=== PATIENT | female | born 1995 | race American Indian/Alaskan Native ===

== ENCOUNTER 2017-07-03 00:01 | Emergency (ER) | payer BC, OTHER ==
[2017-07-03 00:48] VITALS: BMI 25.7
[2017-07-03] MEDS ORDERED: Sodium Chloride 0.9% 1,000 ML IV STA (00:55)
--- NOTE | 2017-07-03 00:59 | ED PDOC ---
Arrival/HPI - General Historian: Patient <Hector Pagan - Last Filed: 07/03/17 04:03> <Jose Armando Mosher - Last Filed: 07/03/17 06:01> - General Chief Complaint: Abdominal Pain Time Seen by Provider: 07/03/17 00:53 - History of Present Illness Narrative History of Present Illness (Text): 07/03/17 00:56 22 y/o female, pmh including colitis, c/o upper abdominal pain with nausea/ vomiting/diarrhea x 2 days. Pt. stated that she has sharp abdominal pain, associated with nausea/vomiting and 3-4 episodes of watery diarrhea, no fever or chills, no rash, no urinary symptoms, no other medical or psychological complaints. (Hector Pagan) Past Medical History - Provider Review Nursing Documentation Reviewed: Yes - Infectious Disease Hx of Infectious Diseases: None - Cardiac Hx Cardiac Disorders: No - Pulmonary Hx Respiratory Disorders: No - Neurological Hx Neurological Disorder: No - HEENT Hx HEENT Disorder: No - Renal Hx Renal Disorder: No - Endocrine/Metabolic Hx Endocrine Disorders: No - Hematological/Oncological Hx Blood Disorders: No - Integumentary Hx Dermatological Disorder: No - Musculoskeletal/Rheumatological Hx Musculoskeletal Disorders: No Hx Falls: No - Gastrointestinal Hx Colitis: Yes - Genitourinary/Gynecological Hx Genitourinary Disorders: No - Psychiatric Hx Psychophysiologic Disorder: No Hx Substance Use: Yes - Anesthesia Hx Anesthesia: No Hx Anesthesia Reactions: No Hx Malignant Hyperthermia: No - Suicidal Assessment Feels Threatened In Home Enviroment: No <Hector Pagan - Last Filed: 07/03/17 04:03> Family/Social History - Physician Review Nursing Documentation Reviewed: Yes Family/Social History: Unknown Family HX Smoking Status: Light Smoker < 10 Cigarettes Daily Hx Alcohol Use: Yes Frequency of alcohol use: Socially Hx Substance Use: Yes Substance used: MARIJUANA <Hector Pagan - Last Filed: 07/03/17 04:03> Allergies/Home Meds <Hector Pagan - Last Filed: 07/03/17 04:03> <Jose Armando Mosher - Last Filed: 07/03/17 06:01> Allergies/Adverse Reactions: Allergies hawkins Allergy (Verified 07/03/17 00:48) ITCHING Review of Systems - Review of Systems Constitutional: absent: Fatigue, Fevers Eyes: absent: Vision Changes ENT: absent: Hearing Changes Respiratory: absent: SOB, Cough Cardiovascular: absent: Chest Pain Gastrointestinal: Abdominal Pain, Diarrhea, Nausea, Vomiting Skin: absent: Rash, Pruritis, Skin Lesions Neurological: absent: Headache, Dizziness, Focal Weakness, Gait Changes, Speech Changes, Facial Droop, Disequilibrium, Seizure <Hector Pagan - Last Filed: 07/03/17 04:03> Physical Exam Vital Signs Reviewed: Yes Temperature: Afebrile Blood Pressure: Normal Pulse: Regular Respiratory Rate: Normal Appearance: Positive for: Well-Appearing, Non-Toxic, Comfortable Pain Distress: Moderate Mental Status: Positive for: Alert and Oriented X 3 - Systems Exam Head: Present: Atraumatic, Normocephalic Pupils: Present: PERRL Extroacular Muscles: Present: EOMI Conjunctiva: Present: Normal Mouth: Present: Moist Mucous Membranes Neck: Present: Normal Range of Motion Respiratory/Chest: Present: Clear to Auscultation, Good Air Exchange. No: Respiratory Distress, Accessory Muscle Use Cardiovascular: Present: Regular Rate and Rhythm, Normal S1, S2. No: Murmurs Abdomen: Present: Tenderness (+ttp on the upper and epigastric tenderness), Normal Bowel Sounds. No: Distention, Peritoneal Signs, Rebound, Guarding Back: Present: Normal Inspection Upper Extremity: Present: Normal Inspection. No: Cyanosis, Edema Lower Extremity: Present: Normal Inspection. No: Edema Neurological: Present: GCS=15, Speech Normal, Motor Func Grossly Intact, Gait Normal, Memory Normal Skin: Present: Warm, Dry, Normal Color. No: Rashes Psychiatric: Present: Alert, Oriented x 3, Normal Insight, Normal Concentration <Hector Pagan - Last Filed: 07/03/17 04:03> Medical Decision Making - Lab Interpretations I have reviewed the lab results: Yes Interpretation: Abnormal lab values (wbc 19, lipase 390) - RAD Interpretation Group Manager: Radiologist <Hector Pagan - Last Filed: 07/03/17 04:03> <Jose Armando Mosher - Last Filed: 07/03/17 06:01> ED Course and Treatment: 07/03/17 01:02 -labs/ua -gallbladder sonogram -CT abdomen and pelvis -IVF/pepcid/reglan 07/03/17 02:40 -Urine hcg negative -Gall bladder sonogram show no acute findings. -labs are non-significant except wbc 19.2 (afebrile) and Lipase 390 (admits been drinking frequently lately) -Pending UA -Pending CT abdomen and pelvis. -Case signout to the ER attending Dr. Mosher for the follow up on the CT and dispo. (Hector Pagan) - Lab Interpretations Lab Results: 07/03/17 01:02 07/03/17 01:02 Lab Results 07/03/17 01:02: Sodium 133, Potassium 4.2, Chloride 99, Carbon Dioxide 20 L, Anion Gap 18, BUN 10, Creatinine 0.6, Est GFR ( Amer) > 60, Est GFR (Non- Af Amer) > 60, Random Glucose 99, Calcium 10.0, Total Bilirubin 0.9, AST 26, ALT 25, Alkaline Phosphatase 75, Total Protein 8.6 H, Albumin 5.1 H, Globulin 3.5, Albumin/Globulin Ratio 1.5, Lipase 390 H 07/03/17 01:02: WBC 19.2 H D, RBC 4.26, Hgb 12.8, Hct 37.9, MCV 89.0, MCH 30.0, MCHC 33.8, RDW 12.5, Plt Count 293, MPV 10.8, Neutrophils % (Manual) 96 H, Band Neutrophils % 1, Lymphocytes % (Manual) 2 L, Monocytes % (Manual) 2, Platelet Evaluation Normal - RAD Interpretation Radiology Orders: 07/03/17 00:55 GALL BLADDER [US] Stat 07/03/17 00:56 ABD & PELVIS IV CONTRAST ONLY [CT] Stat Gall bladder sonogram: FINDINGS: Liver: Liver appears mildly enlarged. Gallbladder: Gallbladder is only partially distended with no stones, sludge or wall thickening. Common bile duct: Common bile duct measures 3.4 mm in diameter. Pancreas: Pancreas is partially obscured by bowel gas. Right kidney: Right kidney is unremarkable. Aorta: Visualized portions of the aorta and inferior vena cava are unremarkable. IMPRESSION: No gallstones or ductal dilatation Thank you for allowing us to participate in the care of your patient. Dictated and Authenticated by: Anila Fleming MD 07/03/2017 1:50 AM Eastern Time ([place] & [place]) CT abdomen and pelvis: (Hector Pagan) - Medication Orders Current Medication Orders: Sodium Chloride (Sodium Chloride 0.9%) 1,000 mls @ 1,000 mls/hr IV .Q1H JUANA Last Admin: 07/03/17 04:29 Dose: 1,000 mls/hr Discontinued Medications Famotidine (Pepcid) 20 mg IVP STAT STA Stop: 07/03/17 00:56 Last Admin: 07/03/17 01:29 Dose: 20 mg Sodium Chloride (Sodium Chloride 0.9%) 1,000 mls @ 999 mls/hr IV .Q1H1M STA Stop: 07/03/17 01:55 Last Admin: 07/03/17 01:29 Dose: 999 mls/hr Metronidazole (Flagyl) 500 mg in 100 mls @ 100 mls/hr IVPB STAT STA PRN Reason: Protocol Stop: 07/03/17 05:05 Last Admin: 07/03/17 04:29 Dose: 100 mls/hr Iohexol (Omnipaque 350 100 Ml) Confirm Administered Dose 350 mg .ROUTE .STK-MED ONE Stop: 07/03/17 02:32 Metoclopramide HCl (Reglan) 10 mg IVP STAT STA Stop: 07/03/17 00:56 Last Admin: 07/03/17 01:29 Dose: 10 mg - PA / PLANT [employer]ER / Resident Statement URIEL has reviewed & agrees with the documentation as recorded. <Hector Pagan - Last Filed: 07/03/17 04:03> - PA / PLANT BREEDER / Resident Statement URIEL has reviewed & agrees with the documentation as recorded. <Jose Armando Mosher - Last Filed: 07/03/17 06:01> Disposition/Present on Arrival - Present on Arrival Any Indicators Present on Arrival: No History of DVT/PE: No History of Uncontrolled Diabetes: No Urinary Catheter: No History of Decub. Ulcer: No History Surgical Site Infection Following: None - Disposition Have Diagnosis and Disposition been Completed?: Yes Disposition Time: 02:41 <Hector Pagan - Last Filed: 07/03/17 04:03> - Present on Arrival Any Indicators Present on Arrival: No - Disposition Have Diagnosis and Disposition been Completed?: Yes Disposition Time: 06:01 <Jose Armando Mosher - Last Filed: 07/03/17 06:01> - Disposition Diagnosis: Abdominal pain, Colitis Disposition: HOME/ ROUTINE Patient Problems: Current Active Problems Problem Status Onset Abdominal pain Acute Colitis Acute Condition: GOOD Discharge Instructions (ExitCare): Colitis (ED) Prescriptions: Metronidazole [Flagyl] 500 mg PO TID #15 tab Referrals: Raleigh Amato MD [Primary Care Provider] - Follow up with primary Forms: [id number] (Latvian)
--- NOTE | 2017-07-03 01:51 | US ---
EXAM: US Abdomen Limited, Right Upper Quadrant CLINICAL HISTORY: 22 years old, female; Pain; Abdominal pain; Generalized; Additional info: Upper abdominal pain TECHNIQUE: Real-time ultrasound of the right upper quadrant with image documentation. EXAM DATE/TIME: 07/03/2017 12:55 AM COMPARISON: There are no prior studies for comparison. FINDINGS: Liver: Liver appears mildly enlarged. Gallbladder: Gallbladder is only partially distended with no stones, sludge or wall thickening. Common bile duct: Common bile duct measures 3.4 mm in diameter. Pancreas: Pancreas is partially obscured by bowel gas. Right kidney: Right kidney is unremarkable. Aorta: Visualized portions of the aorta and inferior vena cava are unremarkable. IMPRESSION: No gallstones or ductal dilatation
[2017-07-03 01:54] LABS: HEMOGLOBIN 12.8 g/dL (12.0-16.0); MEAN CORPUSCULAR HGB CONC 33.8 g/dl (31.0-37.0); MEAN PLATELET VOLUME 10.8 fl (7.0-11.0); PLATELET COUNT 293 10^3/uL (120.0-450.0); RBC 4.26 10^6/uL (3.5-6.1); RED CELL DISTRIBUTION WIDTH 12.5 % (11.5-14.5); WHITE BLOOD COUNT 19.2 10^3/ul (4.5-11.0)
[2017-07-03 01:58] VITALS: RESP 18; O2SAT 100
[2017-07-03 02:05] LABS: ALB/GLOB RATIO 1.5 (1.1-1.8); ALBUMIN 5.1 g/dL (3.0-4.8); ALT/SGPT 25 U/L (7-56); AST/SGOT 26 U/L (15-39); BLOOD UREA NITROGEN 10 mg/dL (7-21); GFR AFRICAN-AMERICAN > 60; GFR NON-AFRICAN AMERICAN > 60; LIPASE 390 U/L (23-300)
[2017-07-03] MEDS ORDERED: Iohexol 350 MG/100 ML VIAL ONE (02:31)
[2017-07-03 02:40] LABS: BAND 1 % (0-2); LYMPHOCYTE 2 % (22.0-35.0); MONOCYTE 2 % (1.0-6.0); NEUTROPHIL 96 % (50.0-70.0)
[2017-07-03 02:41] LABS: PLATELET ESTIMATE NORMAL (NORMAL)
--- NOTE | 2017-07-03 03:38 | CT ---
EXAM: CT Abdomen and Pelvis With Intravenous Contrast CLINICAL HISTORY: 22 years old, female; Pain; Abdominal pain; Generalized; Additional info: Upper abdominal pain TECHNIQUE: Axial computed tomography images of the abdomen and pelvis with intravenous contrast. This CT exam was performed using one or more of the following dose reduction techniques: automated exposure control, adjustment of the mA and/or kV according to patient size, and/or use of iterative reconstruction technique. Coronal and sagittal reformatted images were created and reviewed. CONTRAST: 96 mL of OMNI 350 administered intravenously. COMPARISON: No relevant prior studies available. FINDINGS: Limitations: Motion artifact - mild. Lower thorax: No acute findings. ABDOMEN: Liver: Unremarkable. No mass. Gallbladder and bile ducts: No calcified stones. No ductal dilation. Pancreas: No ductal dilation. No mass. Spleen: No splenomegaly. Adrenals: No mass. Kidneys and ureters: No mass. No hydronephrosis. Stomach and bowel: Segmental areas of mild mural thickening vs underdistention of large bowel. No associated inflammatory stranding. No obstruction. Appendix: No definite findings to suggest acute appendicitis. PELVIS: Bladder: Unremarkable. Reproductive: Unremarkable as visualized. ABDOMEN and PELVIS: Intraperitoneal space: Trace free fluid within pelvis. No free air. Bones/joints: No acute fracture. Soft tissues: Unremarkable. Vasculature: Unremarkable. No aneurysm. Lymph nodes: No pathologically enlarged lymph nodes. IMPRESSION: 1. Mild colitis versus underdistention. Clinical correlation is needed. 2. Incidental/non-acute findings are described above.
[2017-07-03] MEDS ORDERED: metroNIDAZOLE IV 500 mg/100 ml 500 MG/100 ML BAG IVPB STA (04:06)
[2017-07-03] MEDS ORDERED: Sodium Chloride 0.9% 1,000 ML IV SCH (04:15)
[2017-07-03 05:50] VITALS: BP 125/64; PULSE 85
[2017-07-03 06:09] VITALS: TEMP 98.9
== END 2017-07-03 06:10 | disposition home or self-care (01) ==
LOC: ED 00:01
DX: K52.9 Noninfective gastroenteritis and colitis, unspecified (principal); R10.9 Unspecified abdominal pain
CPT/HCPCS: 74177; 76705; 80053; 83690; 85025; 96365; 96375; 99283; J2765; J7040; Q9967